=== PATIENT | female | born 1985 | race Caucasian/White ===

== ENCOUNTER 2017-06-26 16:25 | Emergency (ER) | payer OTHER ==
[~2017-06-26] VITALS: Ht 162.6 cm; Wt 75.0 kg
[~2017-06-26 16:25] MED LIST: ALBU8.5H8 IH; DOCU100C33 PO; FLUT16H NASAL; IBUP-2071 PO; LORA10TA7 PO
[2017-06-26] MEDS ORDERED: ACET-2247 PO (16:48)
[2017-06-26] MEDS ORDERED: DiphenhydrAMINE HCL 50 MG/ML VIAL IVP ONE (18:15)
[2017-06-26] MEDS ORDERED: SODIUM CHLORIDE 0.9% 1,000 ML IV ONE (18:15)
[2017-06-26] MEDS ORDERED: METOCLOPRAMIDE HCL 5 MG/ML 2 ML VIAL IVP ONE (18:15)
[2017-06-26 18:31] VITALS: BP 134/88
[2017-06-26 18:36] LABS: APPEARANCE,URINE CLEAR (CLEAR); GLUCOSE, URINE (UA) NEGATIVE (NEGATIVE); KETONES,URINE NEGATIVE (NEGATIVE); LEUKOCYTE ESTERASE ,URINE NEGATIVE (NEGATIVE); OCCULT BLOOD,URINE TRACE (NEGATIVE); PH,URINE 7.5 (5.0-8.0); PROTEIN,URINE NEGATIVE (NEGATIVE)
[2017-06-26 19:02] LABS: RBC,URINE 0-2 /HPF (0-2); WBC,URINE None Seen /HPF (0-5)
[2017-06-26 19:03] LABS: SQUAMOUS EPITHELIAL CELL,UR Few /LPF (None Seen)
== END 2017-06-26 19:02 | disposition home or self-care (01) ==
LOC: EMS 16:32
DX: G43.909 Migraine, unspecified, not intractable, without status migrainosus (principal); J45.909 Unspecified asthma, uncomplicated
CPT/HCPCS: 81001; 84703; 96374; 96375; 99284; J1200; J2765; J7030

== ENCOUNTER 2022-10-19 16:05 | Emergency (ER) | payer OTHER ==
[~2022-10-19] VITALS: Ht 162.6 cm; Wt 72.7 kg
[~2022-10-19 16:05] MED LIST changes: +ACET-2247 PO; -FLUT16H NASAL; +FLUT16SP NASAL; -IBUP-2071 PO
[2022-10-19] MEDS ORDERED: ALBU8HFA IH (17:11)
[2022-10-19] MEDS ORDERED: KETOROLAC TROMETHAMINE 30 MG/ML VIAL IVP ONE (17:15)
[2022-10-19] MEDS ORDERED: SODIUM CHLORIDE 0.9% 1,000 ML IV ONE (17:15)
[2022-10-19] MEDS ORDERED: METOCLOPRAMIDE HCL 5 MG/ML 2 ML VIAL IVP ONE (17:15)
[2022-10-19] MEDS ORDERED: DiphenhydrAMINE HCL 50 MG/ML VIAL IVP ONE (17:15)
[2022-10-19 18:44] VITALS: BP 131/86
== END 2022-10-19 19:01 | disposition home or self-care (01) ==
LOC: EMS 16:19
DX: G43.909 Migraine, unspecified, not intractable, without status migrainosus (principal); J45.909 Unspecified asthma, uncomplicated
CPT/HCPCS: 99285; 96374; 70450; 96375; 96361; J1200; J1885; J2765; J7030